=== PATIENT | female | born 1975 | race Two or more races ===

== ENCOUNTER 2018-07-03 18:15 | Emergency (ER) | payer MEDICAID ==
[~2018-07-03] VITALS: Ht 152.4 cm; Wt 44.0 kg
[2018-07-03] MEDS ORDERED: cefTRIAXone 1GM/50ML D5W 50 ML IV ONE (20:15)
[2018-07-03] MEDS ORDERED: methylPREDNISolone SOD SUCC 125 MG/2 ML VL IV ONE (20:15)
[2018-07-03] MEDS ORDERED: LORATADINE 10 MG TAB PO ONE (20:15)
[2018-07-03] MEDS ORDERED: FAMOTIDINE INJECTION 40 MG in SODIUM CHL 0.9% 100 ML IV ONE (20:15)
[2018-07-03] MEDS ORDERED: SODIUM CHLORIDE 0.9% 1,000 ML IV ONE (20:15)
[2018-07-03 21:30] VITALS: BP 107/58
== END 2018-07-03 21:32 | disposition home or self-care (01) ==
LOC: ER 18:15
DX: T78.40XA Allergy, unspecified, initial encounter (principal); Z88.0 Allergy status to penicillin; Z88.8 Allergy status to other drugs, medicaments and biological substances; X58.XXXA Exposure to other specified factors, initial encounter
CPT/HCPCS: 96365; 96375; 99284; J0696; J2930; J3490; J7030